=== PATIENT | female | born 1960 | race Caucasian/White ===

== ENCOUNTER → 2017-03-07 | Outpatient (CLI) | payer BC | LOC: MC.RAD 11:02 | DX: Z12.31 Encounter for screening mammogram for malignant neoplasm of breast (principal) ==

== ENCOUNTER 2022-04-29 07:21 | Day surgery (SDC) | payer BC ==
[~2022-04-29] VITALS: Ht 172.7 cm; Wt 93.6 kg
[2022-04-29 08:06] VITALS: BP 137/98; PULSE 86; TEMP 97.9
[2022-04-29] MEDS ORDERED: PRINIVIL40 MG PO (08:10)
[2022-04-29] MEDS ORDERED: ZYRTEC 10MG10 MG PO (08:11)
[2022-04-29 09:04] VITALS: BP 114/79; PULSE 77; TEMP 97.5
[2022-04-29 09:15] VITALS: BP 120/77; PULSE 71
[2022-04-29 09:29] VITALS: BP 128/79; PULSE 69
[2022-04-29 09:30] VITALS: BP 120/72; PULSE 68
--- NOTE | 2022-04-29 09:30 | NUR ---
MET WITH PATIENT TO DISCUSS PROCEDURE. DISCHARGE TEACHING COMPLETED WITH PRINTED EDUCATION AND INSTRUCTIONS SENT HOME WITH PATIENT. PATIENT VERBALIZED UNDERSTANDING OF TEACHING. IV REMOVED. PATIENT DISCHARGED HOME WITH [facility].
--- NOTE | 2022-04-29 09:53 | NUR ---
PATIENT AMBULATED TO CHAIR WITH STANDBY ASSIST, GAIT STEADY. PATIENT ALERT AND ORIENTED, DENIES PAIN AND NAUSEA. BREATHING REGULAR AND UNLABORED. NURSE HANDOFF COMPLETED IN ROOM. SEE CHART FOR VITAL SIGNS. PATIENT HAD ORANGE JUICE AND A MUFFIN, BOTH TOLERATED WELL. CALL LIGHT IN REACH.
== END 2022-04-29 09:37 | disposition home or self-care (01) ==
LOC: SDCO 07:21
DX: Z12.11 Encounter for screening for malignant neoplasm of colon (principal); Z83.71 Family history of colonic polyps
CPT/HCPCS: J2704; J7120